=== PATIENT | male | born 1990 | race African-American/Black ===

== ENCOUNTER 2021-01-02 16:23 | Emergency (ER) | payer OTHER ==
[2021-01-02] MEDS ORDERED: CEPHALEXIN 500MG STARTER PACK 4 CAP BTL PO STA (17:02)
[2021-01-02] MEDS ORDERED: LIDOCAINE 1% INJ 10MG/ML (20 ML MDV) SQ ONE (17:02)
[2021-01-02] MEDS ORDERED: SULFAMETH-TMP DS STARTER PACK 2 TAB BTL PO STA (17:03)
--- NOTE | 2021-01-02 17:49 | ED ---
Skin/Abscess/FB HPI - General Chief complaint: Skin/Abscess/Foreign Body Stated complaint: Leg pain, possible spider bite Time Seen by Provider: 01/02/21 16:36 Source: patient Mode of arrival: ambulatory Limitations: no limitations - History of Present Illness Initial comments: 30-year-old male presenting today for chief complaint of left posterior thigh abscess. Patient states he noticed a bump in his by a few days ago he states is becoming larger more painful and began draining after squeezing today. Patient believes he needs it drained denies and thus presented to the ER. He denies any fevers chills general malaise. He denies any other affected areas. - Related Data Previous Rx's Medication Instructions Recorded Sulfamethox-Tmp 800-160Mg [Bactrim 2 each PO Q12HR #56 tab 05/14/15 DS 800-160 mg] Cephalexin [Keflex] 500 mg PO Q6HR 7 Days #28 cap 01/02/21 Sulfamethox-Tmp 800-160Mg [Bactrim 1 tab PO Q12HR 7 Days #14 tab 01/02/21 DS 800-160 mg] Allergies Allergy/AdvReac Type Severity Reaction Status Date / Time No Known Allergies Allergy Verified 01/02/21 16:30 Review of Systems ROS Statement: Those systems with pertinent positive or pertinent negative responses have been documented in the HPI. ROS Other: All systems not noted in ROS Statement are negative. Past Medical History Past Medical History: No Reported History History of Any Multi-Drug Resistant Organisms: None Reported Past Surgical History: No Surgical Hx Reported Past Psychological History: Depression Smoking Status: Current every day smoker Past Alcohol Use History: None Reported Past Drug Use History: Marijuana General Exam - General Exam Comments Initial Comments: General: The patient is awake and alert, in no distress Eye: Pupils are equal, round and reactive to light, extra-ocular movements are intact. No nystagmus. There is normal conjunctiva bilaterally. No signs of icterus. Ears, nose, mouth and throat: There are moist mucous membranes and no oral lesions. Musculoskeletal: Normal ROM, no tenderness. Strength 5/5. Sensation intact. Pulses equal bilaterally 2+. Neurological: A&O x 3. CN II-XII intact, There are no obvious motor or sensory deficits. Coordination appears grossly intact. Speech is normal. Skin: Skin is warm and dry and no rashes. raised, indurated area approximately 3 x 3 cm on the posterior left mid thigh, some spontaneous active drainage. No odor no crepitus no extension proximally Psychiatric: Cooperative, appropriate mood & affect, normal judgment. Limitations: no limitations Course Vital Signs 01/02/21 01/02/21 16:28 17:57 Temperature 98.4 F 98.1 F Pulse Rate 100 70 Respiratory 20 17 Rate Blood Pressure 143/97 135/71 O2 Sat by Pulse 97 98 Oximetry Procedures - Incision & Drainage Consent Obtained: verbal consent, written consent ([id number] timeout) Indication: abscess left thigh Site: lower extremity Size (cm): 3 Anesthetic Used: lidocaine 1% Amount (mLs): 2 I&D Cleaning Method: Iodine Scalpel Used: #11 Needle Aspiration Performed?: No Irrigation Performed?: No I&D Drainage Obtained: Pus, Blood Complications: pain (minimal) Patient Tolerated Procedure: well, no complications Medical Decision Making - Medical Decision Making 30-year-old male presenting today for chief complaint of left posterior thigh abscess. After verbal and written consent after timeout was performed an area marked patient had local anesthetic applied to the area and incision and drainage was performed. Did get a small amount of purulent drainage otherwise mostly serosanguineous and blood. I did attempt to break up inoculations. Patient at this time will be discharged with Keflex and Bactrim is to return for worsening redness pain and swelling fevers or any other concerning signs or symptoms. Patient verbalized understanding of these return parameters is agreeable to care plan discharge at this time Disposition Clinical Impression: Thigh abscess Disposition: HOME SELF-CARE Condition: Good Instructions (If sedation given, give patient instructions): Abscess Incision and Drainage (ED), Abscess (ED) Additional Instructions: Please use medication as discussed. Please follow-up with family doctor in the next 2 days .. Please return to emergency room if the symptoms increase or worsen or for any other concerns. Prescriptions: Sulfamethox-Tmp 800-160Mg [Bactrim DS 800-160 mg] 1 tab PO Q12HR 7 Days #14 tab Cephalexin [Keflex] 500 mg PO Q6HR 7 Days #28 cap Is patient prescribed a controlled substance at d/c from ED?: No Referrals: None,Stated [Primary Care Provider] - 1-2 days [facility] [NON-STAFF] - 1-2 days Time of Disposition: 17:49
[2021-01-02 18:12] VITALS: BP 135/71; PULSE 70; RESP 17; TEMP 98.1
== END 2021-01-02 18:00 | disposition home or self-care (01) ==
LOC: EC 16:23
DX: L02.416 Cutaneous abscess of left lower limb (principal); F17.200 Nicotine dependence, unspecified, uncomplicated
CPT/HCPCS: 87070; 87205; 99283; 10060; J2001